=== PATIENT | female | born 1970 | race Caucasian/White ===

== ENCOUNTER 2023-11-12 07:41 | Outpatient (CLI) | payer OTHER, SELFPAY | END 2023-11-12 07:42 | disposition home or self-care (01) | LOC: FRMREF 07:44 | PROVIDERS: PCP Family Medicine; Visit Provider Family Medicine | DX: I10 Essential (primary) hypertension (principal) | CPT/HCPCS: 80053 ==

== ENCOUNTER 2024-09-22 11:50 | Outpatient (CLI) | payer BC, SELFPAY | END 2024-09-22 11:51 | disposition home or self-care (01) | PROVIDERS: PCP Physician Assistant Medical; Visit Provider Registered Nurse | DX: I10 Essential (primary) hypertension (principal); M79.602 Pain in left arm; F41.9 Anxiety disorder, unspecified | CPT/HCPCS: 80061; 84443 ==

== ENCOUNTER 2025-01-08 11:02 | Outpatient (CLI) | payer BC, SELFPAY ==
[2025-01-09 00:29] LABS: Chlamydia DNA Amplified* NOT DETECTED (No Detected); GC DNA Amplified* NOT DETECTED (No Detected)
[2025-01-10 20:20] LABS: HPV Source Cervix; HPV, High Risk by TMA Not Detected
== END 2025-01-08 11:03 | disposition home or self-care (01) ==
PROVIDERS: PCP Registered Nurse; Visit Provider Physician Assistant Medical
DX: Z11.3 Encounter for screening for infections with a predominantly sexual mode of transmission (principal); Z11.51 Encounter for screening for human papillomavirus (HPV); Z12.4 Encounter for screening for malignant neoplasm of cervix
CPT/HCPCS: 87491; 87591; 87624; 87625; 88141; 88142